=== PATIENT | female | born 1965 | race Two or more races ===

== ENCOUNTER 2023-05-19 07:42 | Day surgery (SDC) | payer OTHER ==
[~2023-05-19] VITALS: Ht 177.8 cm; Wt 95.3 kg
[~2023-05-19 07:42] MED LIST: COZAAR100 MG PO; FOSAMAX70 MG PO; HYDRODIURIL12.5 MG PO; LIPITOR20 MG PO; MAXIMUM D3325 MCG PO; METFORMIN HCL850 M1 PO; NORVASC2.5 MG PO
[2023-05-19] MEDS ORDERED: CIPROFLOXACIN2.5 ML OTIC (12:05)
[2023-05-19] MEDS ORDERED: CEPHALEXIN500 M1 PO (12:06)
== END 2023-05-19 15:00 | disposition home or self-care (01) ==
LOC: CIR.AMB 07:42
PROVIDERS: ATTEND Otolaryngology Otology & Neurotology
DX: H80.91 Unspecified otosclerosis, right ear (principal); H90.11 Conductive hearing loss, unilateral, right ear, with unrestricted hearing on the contralateral side; Z20.822 Contact with and (suspected) exposure to COVID-19